=== PATIENT | male | born 1960 | race American Indian/Alaskan Native ===

== ENCOUNTER 2018-08-14 17:54 | Emergency (ER) | payer OTHER ==
[2018-08-14 18:08] VITALS: BP 167/76
[2018-08-14] MEDS ORDERED: TYLENOL PO ONE (21:09)
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
== END 2018-08-14 22:30 | disposition home or self-care (01) ==
LOC: ED 17:54
DX: S09.90XA Unspecified injury of head, initial encounter (principal); I10 Essential (primary) hypertension; E11.9 Type 2 diabetes mellitus without complications; W22.8XXA Striking against or struck by other objects, initial encounter; Y93.89 Activity, other specified; Y92.89 Other specified places as the place of occurrence of the external cause; Y99.8 Other external cause status
CPT/HCPCS: 70450